=== PATIENT | female | born 1975 | race Asian ===

== ENCOUNTER 2021-07-23 01:34 | Emergency (ER) | payer BC, OTHER ==
[2021-07-23 01:48] VITALS: BP 136/76; PULSE 100; TEMP 98.6; BMI 21.7
[2021-07-23] MEDS ORDERED: ALPRAZolam 1 MG TABLET PO PRN (01:51)
[2021-07-23] MEDS ORDERED: ALPRAZolam 0.25 MG TABLET ONE (01:54)
== END 2021-07-23 02:03 | disposition home or self-care (01) ==
LOC: FER 01:34
DX: F45.21 Hypochondriasis (principal)
CPT/HCPCS: 93005; 99283-25